=== PATIENT | male | born 1990 | race Caucasian/White ===

== ENCOUNTER 2017-05-27 22:37 | Emergency (ER) | payer OTHER ==
[~2017-05-27] VITALS: Ht 185.4 cm; Wt 79.4 kg
[~2017-05-27 22:37] MED LIST: IBUPROFEN600 MG ORAL; KEFLEX500 MG ORAL
[2017-05-27 23:24] LABS: BASOPHILS % (AUTO) 1.1 % (0.0-2.0); EOSINOPHILS % (AUTO) 1.3 % (0.0-3.0); LYMPHOCYTES % (AUTO) 37.1 % (20.0-45.0); MEAN CORPUSCULAR HGB CONC 36.2 G/DL (32.0-36.0); MEAN CORPUSCULAR VOLUME 91 FL (80-99); MONOCYTES % (AUTO) 11.5 % (1.0-10.0); NEUTROPHILS % (AUTO) 49.1 % (45.0-75.0); PLATELET COUNT 312 K/UL (150-450); RED BLOOD COUNT 4.09 M/UL (4.70-6.10); RED CELL DISTRIBUTION WIDTH 11.2 % (11.6-14.8)
[2017-05-27 23:37] LABS: ANION GAP 6 mmol/L (5-15); CALCIUM 8.8 MG/DL (8.5-10.1); CARBON DIOXIDE 28 MMOL/L (21-32); CHLORIDE 107 MMOL/L (98-107); CREATININE 0.9 MG/DL (0.55-1.30); GLOMERULAR FILTRATION RATE > 60 mL/min (>60); POTASSIUM 4.1 MMOL/L (3.5-5.1); SODIUM 141 MMOL/L (136-145)
[2017-05-27 23:45] LABS: ALANINE AMINOTRANSFERASE 33 U/L (12-78); ALBUMIN/GLOBULIN RATIO 1.1 (1.0-2.7); ALCOHOL 3 mg/dL; ASPARTATE AMINO TRANSFERASE 26 U/L (15-37); TOTAL PROTEIN 6.8 G/DL (6.4-8.2)
[2017-05-27 23:53] LABS: ACETAMINOPHEN < 2 MCG/ML (10-30)
[2017-05-28] MEDS ORDERED: LORazepam 1mg tab ORAL ONE (00:15)
[2017-05-28 00:51] VITALS: BP 128/79
--- NOTE | 2017-05-28 01:37 | Emergency Room Report ---
History of Present Illness General Chief Complaint: Behavioral Complaint Source: Patient Present Illness HPI Patient was brought in by police department paramedics Patient was found walking the streets Was reporting auditory hallucinations Patient also reported doing drugs earlier this morning Denies any headache or visual changes denies any chest pain or shortness of breath Patient appeared Initially somewhat agitated Allergies: Coded Allergies: No Known Allergies (Unverified , 02/28/16) Patient History Past Medical History: see triage record Pertinent Family History: none Reviewed Nursing Documentation: PMH: Agreed, PSxH: Agreed Nursing Documentation-PMH History Of Psychiatric Problem: Yes Review of Systems All Other Systems: negative except mentioned in HPI Physical Exam Vital Signs Date Time Temp Pulse Resp B/P (MAP) Pulse Ox O2 Delivery O2 Flow Rate FiO2 05/27/17 22:37 97.9 60 16 130/79 100 Room Air Sp02 EP Interpretation: reviewed, normal General Appearance: no apparent distress - appears disheved Head: normocephalic, atraumatic Eyes: bilateral eye PERRL, bilateral eye EOMI ENT: hearing grossly normal, normal pharynx, TMs + canals normal, uvula midline Neck: full range of motion, supple, no meningismus, no bony tend Respiratory: lungs clear, normal breath sounds, no rhonchi, no respiratory distress, no retraction, no accessory muscle use Cardiovascular #1: normal peripheral pulses, regular rate, rhythm, no edema, no gallop, no JVD, no murmur Gastrointestinal: normal bowel sounds, non tender, soft, no mass, no organomegaly, non-distended, no guarding, no hernia, no pulsatile mass, no rebound Genitourinary: no CVA tenderness Musculoskeletal: normal inspection Neurologic: oriented x3, responsive, python programmer III-XII nml as tested, motor strength/ tone normal, sensory intact Psychiatric: other - Denies any suicidal or homicidal thought, however the patient reports hearing voices Skin: normal color, no rash, warm/dry, palpation normal Lymphatic: normal inspection, no adenopathy Medical Decision Making Diagnostic Impression: Primary Impression: medically cleared ER Course Given the patient's history and presentation blood work was initiated Patient does show multiple drug ingestions positive At this time resting comfortably Patient will have psychiatric evaluation Patient has been cleared by psychiatric services And has appropriate outpatient disposition Labs Test 05/27/17 22:48 05/27/17 23:06 Urine Opiates Screen Negative (NEGATIVE) Urine Barbiturates Screen Negative (NEGATIVE) Phencyclidine (PCP) Screen Negative (NEGATIVE) Urine Amphetamines Screen Positive (NEGATIVE) Urine Benzodiazepines Screen Negative (NEGATIVE) Urine Cocaine Screen Positive (NEGATIVE) Urine Marijuana (THC) Screen Positive (NEGATIVE) White Blood Count 9.0 K/UL (4.8-10.8) Red Blood Count 4.09 M/UL (4.70-6.10) Hemoglobin 13.5 G/DL (14.2-18.0) Hematocrit 37.3 % (42.0-52.0) Mean Corpuscular Volume 91 FL (80-99) Mean Corpuscular Hemoglobin 33.0 PG (27.0-31.0) Mean Corpuscular Hemoglobin Concent 36.2 G/DL (32.0-36.0) Red Cell Distribution Width 11.2 % (11.6-14.8) Platelet Count 312 K/UL (150-450) Mean Platelet Volume 6.0 FL (6.5-10.1) Neutrophils (%) (Auto) 49.1 % (45.0-75.0) Lymphocytes (%) (Auto) 37.1 % (20.0-45.0) Monocytes (%) (Auto) 11.5 % (1.0-10.0) Eosinophils (%) (Auto) 1.3 % (0.0-3.0) Basophils (%) (Auto) 1.1 % (0.0-2.0) Sodium Level 141 MMOL/L (136-145) Potassium Level 4.1 MMOL/L (3.5-5.1) Chloride Level 107 MMOL/L (98-107) Carbon Dioxide Level 28 MMOL/L (21-32) Anion Gap 6 mmol/L (5-15) Blood Urea Nitrogen 20 mg/dL (7-18) Creatinine 0.9 MG/DL (0.55-1.30) Estimat Glomerular Filtration Rate > 60 mL/min (>60) Glucose Level 84 MG/DL (74-106) Calcium Level 8.8 MG/DL (8.5-10.1) Total Bilirubin 0.4 MG/DL (0.2-1.0) Aspartate Amino Transf (AST/SGOT) 26 U/L (15-37) Alanine Aminotransferase (ALT/SGPT) 33 U/L (12-78) Alkaline Phosphatase 76 U/L (46-116) Total Protein 6.8 G/DL (6.4-8.2) Albumin 3.6 G/DL (3.4-5.0) Globulin 3.2 g/dL Albumin/Globulin Ratio 1.1 (1.0-2.7) Salicylates Level 1.3 ug/mL (2.8-20) Acetaminophen Level < 2 MCG/ML (10-30) Serum Alcohol 3 mg/dL Last Vital Signs Date Time Temp Pulse Resp B/P (MAP) Pulse Ox O2 Delivery O2 Flow Rate FiO2 05/28/17 00:51 97.9 14 128/79 100 Room Air 05/27/17 22:37 60 Status: improved Disposition: HOME, SELF-CARE Condition: Improved Referrals: NOT CHOSEN IPA/MD,REFERRING (PCP) Additional Instructions: Patient is provided with the discharge instructions notified to follow up with primary doctor in the next 2-3 days otherwise return to the er with any worsening symptoms. Please note that this report is being documented using [employer] technology. This can lead to erroneous entry secondary to incorrect interpretation by the dictating instrument. GAURI LY D.O. May 28, 2017 01:37
[2017-05-28 02:00] VITALS: BP 132/81
[2017-05-28 03:30] VITALS: BP 130/80
[2017-05-28 05:00] VITALS: BP 129/78
[2017-05-28 07:00] VITALS: BP 137/83
[2017-05-28 15:10] VITALS: BP 116/88
--- NOTE | 2017-05-28 23:18 | Consultation ---
History of Present Illness General Chief Complaint: Behavioral Complaint Present Illness HPI the pt has hx of drug use he denied hx os schizophrenia the pt uses meth he is from [place] stated that his family wont help him therefore he did not provide any info. the pt stated that he is applying for benefits and he wll do well. he denied si/hi. the pt reluctant to go to shelters. the pt was calm during the eval not psychotic or manic. no si/hi Allergies: Coded Allergies: No Known Allergies (Unverified , 02/28/16) Medication History Scheduled Cephalexin* (Keflex*), 500 MG ORAL Q6H Scheduled PRN Ibuprofen* (Motrin*), 600 MG ORAL Q8H PRN for For Pain Patient History Limited by: medical condition History Provided By: Patient, Medical Record, PMD Healthcare decision maker Resuscitation status Advanced Directive on File Past Medical/Surgical History Past Medical/Surgical History: (1) Hematoma (2) Laceration (3) Multiple injuries due to trauma (4) Substance abuse Review of Systems Psychiatric: Reports: anxiety, depressed feelings, emotional problems Physical Exam General Appearance: WD/WN, no apparent distress, alert, thin Neurologic: alert, oriented x 3, responsive, normal mood/affect Last 24 Hour Vital Signs Date Time Temp Pulse Resp B/P (MAP) Pulse Ox O2 Delivery O2 Flow Rate FiO2 05/28/17 15:10 97.4 92 16 116/88 98 Room Air 05/28/17 15:10 92 16 116/88 98 Room Air 05/28/17 07:00 97.7 86 14 137/83 98 Room Air 05/28/17 05:00 97.7 12 129/78 97 Room Air 05/28/17 03:30 14 130/80 97 Room Air 05/28/17 02:00 97.9 18 132/81 98 Room Air 05/28/17 00:51 97.9 14 128/79 100 Room Air Height (Feet): 6 Height (Inches): 1.00 Weight (Pounds): 175 Assessment/Plan Status: stable Assessment/Plan the pt is not at imminent dts/dto -reluctant to take meds -he stated that he prefers to be homeless -[id number] [id number] Yoli Jones M.D. May 28, 2017 23:18
== END 2017-05-28 16:00 | disposition home or self-care (01) ==
LOC: EDBD 22:37 → EMR 22:58
DX: R44.0 Auditory hallucinations (principal); F41.9 Anxiety disorder, unspecified
CPT/HCPCS: 36415; 80053; 80307; 80329; 85025; 99283